=== PATIENT | male | born 1935 | race Caucasian/White ===

== ENCOUNTER 2020-02-21 08:41 | Inpatient (IN) ==
--- NOTE | 2020-02-08 09:42 | PAT Medication Instructions ---
Medication Instructions Date of Service February 08, 2020 Home Medications alendronate 70 mg PO WK alfuzosin 10 mg PO QAM calcium carbonate-vitamin D3 [Calcium 600 + D(3)] 1 tab PO QDL carbidopa-levodopa 1 tab PO QPM carbidopa-levodopa 2 tab PO HS gabapentin 200 mg PO HS magnesium oxide 400 mg PO QDL yeumllpu-kuy-ET-lycopen-lutein [Centrum Silver] 1 tab PO QPM saw palmetto fruit 450 mg PO QDL sennosides 34.4 mg PO HS Continue as directed alendronate 70 mg PO WK (just do not take AM of surgery) STOP taking 2 weeks before surgery syprfzoh-tqj-SL-lycopen-lutein [Centrum Silver] 1 tab PO QPM saw palmetto fruit 450 mg PO QDL DO NOT take the morning of surgery calcium carbonate-vitamin D3 [Calcium 600 + D(3)] 1 tab PO QDL magnesium oxide 400 mg PO QDL Take morning of surgery With a small sip of water, OTHERWISE NOTHING TO EAT OR DRINK AFTER MIDNIGHT: alfuzosin 10 mg PO QAM Take evening before surgery carbidopa-levodopa gabapentin 200 mg PO HS sennosides 34.4 mg PO HS Other Notes If you have any questions please call us at [phone] or [phone] or [phone] or [phone]
--- NOTE | 2020-02-08 09:57 | Anesthesiology Consultation ---
Date of Service February 08, 2020 Assessment & Plan (1) Encounter for pre-operative examination: Chart Review Chart Review: Acceptable Risk for Surgery and Patient seen in Pre Admission Testing Teaching & Discussion Pre-Anesthesia Teaching/Discussion Notes: Instructed NPO after midnight before surgery,except medications with 15 cc of water. Medication instructions provided according to the PAT guidelines. History Surgery Operation Date: 02/21/20 11:25 Proposed Procedures p L2-L5 Decompression and Fusion; Spinal Cord Monitoring - Terrell Dobbins DO Height/Weight Height: 5 ft 10 in Weight: 72.6 kg Allergies Allergy/AdvReac Type Severity Reaction Status Date / Time No Known Allergies Allergy Verified 01/25/20 14:34 Medications Home Medications Medication Instructions Recorded Confirmed Last Taken alendronate 70 mg PO WK 01/25/20 01/25/20 Unknown alfuzosin 10 mg PO QAM 01/25/20 01/25/20 Unknown calcium carbonate-vitamin D3 1 tab PO QDL 01/25/20 01/25/20 Unknown [Calcium 600 + D(3)] carbidopa-levodopa 1 tab PO QPM 01/25/20 01/25/20 Unknown carbidopa-levodopa 2 tab PO HS 01/25/20 01/25/20 Unknown gabapentin 200 mg PO HS 01/25/20 01/25/20 Unknown magnesium oxide 400 mg PO QDL 01/25/20 01/25/20 Unknown mxrlnhxx-uxb-NA-lycopen-lutein 1 tab PO QPM 01/25/20 01/25/20 Unknown [Centrum Silver] saw palmetto fruit 450 mg PO QDL 01/25/20 01/25/20 Unknown sennosides 34.4 mg PO HS 01/25/20 01/25/20 Unknown Past Medical History Medical History (Updated 02/08/20 @ 11:58 by Gilma Saunders PA-C) BPH (benign prostatic hyperplasia) Cardiac murmur Mild MR and [place] on 2018 echo Chronic back pain Hearing deficit Protruded cervical disc normal ROM Restless leg syndrome reason for carbidopa-levodopa Snores Improved with UPPP surgery - has had two sleep studies- no known MELI per patient Exercise / Class Metabolic Activity III < 4 Walking/Shop/Light housework (one flight of stairs- mild SOB but no chest pain ) Past Family History Family History (Updated 01/25/20 @ 14:54 by Sharmila Babcock RN) Sister Family hx of colon cancer Other No family history of adverse response to anesthesia Past Surgical History Surgical History (Updated 01/25/20 @ 14:54 by Sharmila Babcock RN) History of colonoscopy with polypectomy History of esophagogastroduodenoscopy (EGD) History of tonsillectomy and adenoidectomy History of tooth extraction all teeth Status post uvulopalatopharyngoplasty Past Anesthesia History No Hx of Anesthesia Complications and No Family Hx of Anesthesia Complications History of PONV No Hx of PONV and No Hx of Motion Sickness Social History Smoking Status: Never smoker Do You Dip or Chew Tobacco: No Hx Alcohol Use: No Hx Substance Use: No substance use type: does not use Review of Systems Increased post nasal drip when laying down Patient denies chest pain, shortness of breath, dyspnea on exertion, reflux, cough, wheezing, palpitations. No hx of seizures, stroke, [place]. No hx of blood clots or blood transfusions Physical Exam Vital Signs VITALS BP 133/67 P 59 TEMP 97.5 SP02 99% RESP 16 Constitutional no acute distress ENMT Mouth: + dentures; no TMJ clicking Thyromental Distance: < 3.5 Finger Breadths (3.0) Mallampati Class: I Full dentures on top and bottom Neck neck extension not limited Respiratory normal respiratory effort; no respiratory distress Auscultation: lungs clear to auscultation bilaterally; no wheezes Cardiovascular Rate/Rhythm: regular rate and regular rhythm Heart Sounds: + murmur (I-II/ ) Vessels: no carotid bruit Extremities: no edema Musculoskeletal Spine: no pain with cervical ROM Neurologic moves all extremities Psychiatric Orientation: alert Testing Laboratory Results 02/08/20 10:10 02/08/20 10:10 PT 11.0 Seconds (9.0-12.0) 02/08/20 10:10 INR 1.0 (0.9-1.1) 02/08/20 10:10 APTT 28.6 Seconds (21.0-31.0) 02/08/20 10:10 Urine Color Yellow 02/08/20 10:10 Urine Appearance Clear (Clear) 02/08/20 10:10 Urine pH 6.0 (4.5-7.5) 02/08/20 10:10 Ur Specific Perry 1.021 (1.000-1.030) 02/08/20 10:10 Urine Protein Negative (Negative) 02/08/20 10:10 Urine Glucose (UA) Negative (Negative) 02/08/20 10:10 Urine Ketones Trace (Negative) H 02/08/20 10:10 Urine Nitrite Negative (Negative) 02/08/20 10:10 Ur Leukocyte Esterase Negative (Negative) 02/08/20 10:10 Blood Type A Positive 02/08/20 10:10 Antibody Screen NEGATIVE 02/08/20 10:10 Electrocardiogram Date: 02/08/20 SR with 1st degree AV block with occ PVCs at 61 bpm. RBBB. Chest X-Ray Date: 02/08/20 Findings: + NAD and + cardiomegaly Atherosclerotic calcification of the thoracic aorta. Echocardiogram Date: 10/10/18 EF: 65% LV Function: normal RWMA: + none Grade I diastolic dysfunction. LA moderately enlarged. AV mildly calcified. absent. Mild MR. Mild [place]. Proximal ascending thoracic aorta is borderline enlarged.
--- NOTE | 2020-02-08 10:53 | XRay Report ---
TWO VIEW CHEST CLINICAL HISTORY: Preoperative examination. FINDINGS: PA and lateral chest radiographs are obtained. No prior studies are available for compariso n at the time of dictation. The PA views are degraded by patient rotation. The heart is enlarged noti ng atherosclerotic calcification of the thoracic aorta. The pulmonary vasculature is noncongested. T he lungs and pleural spaces are clear. There is no pneumothorax. The skeletal structures are osteopen ic. The bony thorax appears intact. IMPRESSION: Cardiomegaly with no active disease in the chest. ACT 112: Negative or not required by law. Electronically signed by: Cem Marquez M.D. 02/08/2020 10:52 AM
[2020-02-08 10:54] LABS: Basophils # (auto) 0.03 K/uL (0-0.2); Basophils % (auto) 0.4 %; Eosinophils # (auto) 0.24 K/uL (0-0.5); Eosinophils % (auto) 3.4 %; Hematocrit (blood only) 39.1 % (42-52); Hemoglobin 13.4 g/dL (14.0-18.0); Immature Granulocytes # (auto) 0.02 K/uL (0.00-0.02); Immature Granulocytes % (auto) 0.3 %; Lymphocytes # (auto) 1.24 K/uL (1.2-3.4); Lymphocytes % (auto) 17.6 %; Mean Corpuscular Hemoglobin 29.6 pg (25-34); Mean Corpuscular Hgb Conc 34.3 g/dL (32-36); Mean Corpuscular Volume 86.3 fL (80-100); Mean Platelet Volume 10.7 fL (7.4-10.4); Monocytes # (auto) 0.79 K/uL (0.11-0.59); Monocytes % (auto) 11.2 %; Neutrophils # (auto) 4.73 K/uL (1.4-6.5); Neutrophils % (auto) 67.1 %; Platelet Count 189 K/uL (130-400); RDW Coefficient of Variation 13.8 % (11.5-14.5); RDW Standard Deviation 43.8 fL (36.4-46.3); Red Blood Count 4.53 M/uL (4.7-6.1); White Blood Count 7.05 K/uL (4.8-10.8)
[2020-02-08 11:01] LABS: BUN Creatinine Ratio 19.8 (10-20); Calcium 9.2 mg/dl (8.5-10.1); Creatinine Clr Calc Pharmacy 54.9 ml/min; Est GFR (African American) 78.2; Est GFR (Non-African American) 67.5; Potassium 4.5 mmol/L (3.5-5.1)
[2020-02-08 11:06] LABS: Appearance Urine Clear (Clear); Bilirubin Urine Negative (Negative); Blood Urine Negative (Negative); Color Urine Yellow; Glucose Urine UA Negative (Negative); Ketones Urine Trace (Negative); Leukocyte Esterase Urine Negative (Negative); Nitrite Urine Negative (Negative); Partial Thromboplastin Time 28.6 Seconds (21.0-31.0); Protein Urine Negative (Negative); Specific Gravity Urine 1.021 (1.000-1.030); Urobilinogen Urine Negative (Negative)
--- NOTE | 2020-02-08 17:36 | Electrocardiogram Report ---
Test Reason : Blood Pressure : / mmHG Vent. Rate : 061 BPM Atrial Rate : 061 BPM P-R Int : 222 ms QRS Dur : 168 ms QT Int : 486 ms P-R-T Axes : 073 109 052 degrees QTc Int : 489 ms Sinus rhythm with 1st degree A-V block with occasional Premature ventricular complexes Right bundle branch block Abnormal ECG No previous ECGs available Confirmed by Chris Sen ([id number]) on 02/08/2020 5:35:30 PM Referred By: Terrell Dobbins Confirmed By:Chris Sen
--- NOTE | 2020-02-14 11:25 | History & Physical Report ---
Date of Service February 14, 2020 Assessment & Plan (1) Neurogenic claudication due to lumbar spinal stenosis: At this time the patient is noted a progressive decline with inability to stand and ambulate. He is having progressive bilateral lower extremity weakness and atrophy. Subsequently recommending urgent lumbar decompression and fusion involving L2-3 L3-4 L4-5 and possible L5-S1. Hopefully addressing the disease urgently will prevent further decline in any permanent nerve damage weakness and long-term sequela. Risk benefits pros cons alternatives were outlined in detail. At this time a trap surgery range performed soon as possible. Present on Admission?: Yes History of Present Illness Chief Complaint: Back with bilateral leg pain and weakness Primary Care Provider: Ernestine Daniel MD This is an 84-year-old male that noting marked decline in status with severe bilateral leg pain and weakness. This has been progressive over the past several months. He did undergo several epidural injections which provided no long-term relief. Allergies Allergy/AdvReac Type Severity Reaction Status Date / Time No Known Allergies Allergy Verified 01/25/20 14:34 Home Medications Home Medications Medication Instructions Recorded Confirmed Type alendronate 70 mg PO WK 01/25/20 01/25/20 History alfuzosin 10 mg PO QAM 01/25/20 01/25/20 History calcium carbonate-vitamin D3 1 tab PO QDL 01/25/20 01/25/20 History [Calcium 600 + D(3)] carbidopa-levodopa 1 tab PO QPM 01/25/20 01/25/20 History carbidopa-levodopa 2 tab PO HS 01/25/20 01/25/20 History gabapentin 200 mg PO HS 01/25/20 01/25/20 History magnesium oxide 400 mg PO QDL 01/25/20 01/25/20 History ymdboumj-mxd-SO-lycopen-lutein 1 tab PO QPM 01/25/20 01/25/20 History [Centrum Silver] saw palmetto fruit 450 mg PO QDL 01/25/20 01/25/20 History sennosides 34.4 mg PO HS 01/25/20 01/25/20 History Past Med/Surg History Medical History (Updated 02/14/20 @ 11:24 by Terrell Dobbins DO) BPH (benign prostatic hyperplasia) Cardiac murmur Mild MR and [place] on 2018 echo Chronic back pain Hearing deficit Protruded cervical disc normal ROM Restless leg syndrome reason for carbidopa-levodopa Snores Improved with UPPP surgery - has had two sleep studies- no known MELI per patient Surgical History (Updated 01/25/20 @ 14:54 by Sharmila Babcock RN) History of colonoscopy with polypectomy History of esophagogastroduodenoscopy (EGD) History of tonsillectomy and adenoidectomy History of tooth extraction all teeth Status post uvulopalatopharyngoplasty Family History (Updated 01/25/20 @ 14:54 by Sharmila Babcock RN) Sister Family hx of colon cancer Other No family history of adverse response to anesthesia Social History Preferred Language: Bol[place]ian Communication Ability: Effective Splitter Head Required: No Beliefs That Will Affect Care: None Current Living Situation: Spouse Other Information That Helps Us Care for You: No Feels Safe at Home: Yes Safety Concerns: Feels Safe At This Time Smoking Status: Never smoker Do You Dip or Chew Tobacco: No ; Second Hand Exposure: No ; Tobacco Cessation Education Requested by Patient: No Hx Alcohol Use: No Hx Substance Use: No Physical Exam Physical Exam: Patient is alert and oriented Bench exam reveals a negative logroll bilaterally. No gross tension signs. He does exhibit weakness predominantly the bilateral quadriceps with evidence of atrophy. Plantar flexion dorsiflexion appear to be symmetric and intact. Standing and ambulation even a short period of time throughout the room require him to sit down as he feels his legs will give way. Heart is regular rate and rhythm Lungs clear to auscultation. Results & Data Diagnostic Findings MRI lumbar spine demonstrates anterior listhesis at L2-3 and L3-4 with severe degenerative change to space collapse at L4-5. There is right-sided neuroforaminal disease at L5-S1. Centrally he has severe central lateral recess stenosis most predominant at L2-3 and L3-4.
[~2020-02-21 08:41] MED LIST: ACETAMINOPHEN 500 MG TAB PO SCH; CEFAZOLIN 1000MG 1,000 MG/7.5 ML SYR IV SCH; CeleBREX 200 MG CAP PO SCH; GABAPENTIN 300 MG CAP PO SCH; LR 15ML/HR IV SCH; SODIUM CHLORIDE 0.9% 250 ML IV PRN
[2020-02-21] MEDS ORDERED: fentaNYL citrate 100 MCG/2 ML VIAL ONE ×3 (10:22→15:23)
--- NOTE | 2020-02-21 10:31 | History & Physical Bridge Note ---
Date of Service February 21, 2020 History & Physical Bridge Note I have examined the patient, reviewed the History & Physical and in the interval since the performance of the History & Physical I have noted the following changes of clinical significance: no changes noted
[2020-02-21] MEDS ORDERED: BACITRACIN INJ 50,000 UNIT VIAL ONE (11:14)
[2020-02-21] MEDS ORDERED: BUPIVACAINE/EPINEPHRINE 0.5% MPF 1:200,000 10 ML VIAL ONE (11:14)
[2020-02-21] MEDS ORDERED: HYDROmorphone INJ 1 MG/ML SYRINGE IV PRN ×2 (11:27→16:12)
[2020-02-21] MEDS ORDERED: ePHEDrine sulfate 50 MG/ML AMP IV PRN (11:27)
[2020-02-21] MEDS ORDERED: ONDANSETRON INJ 2 MG/ML 2 ML VIAL IV PRN ×2 (11:27→16:12)
[2020-02-21] MEDS ORDERED: fentaNYL citrate 100 MCG/2 ML VIAL IV PRN (11:27)
[2020-02-21] MEDS ORDERED: ATROPINE SULFATE 0.1 MG/ML 10ML SYR IV PRN (11:27)
[2020-02-21] MEDS ORDERED: FLOSEAL HEMOSTATIC MATRIX 10ML TOP ONE (12:36)
[2020-02-21] MEDS ORDERED: LIDOCAINE HCL 2% 2 ML VIAL/AMP(20MG/ML) INFIL ONE (14:07)
[2020-02-21] MEDS ORDERED: SUCCINYLCHOLINE CHLORIDE 20 MG/ML 10 ML VIAL ONE (14:07)
[2020-02-21] MEDS ORDERED: PROPOFOL IV EMULSION 10 MG/ML 20 ML VIAL IV ONE (14:07)
[2020-02-21] MEDS ORDERED: ROCURONIUM BROMIDE 10 MG/ML 5 ML VIAL ONE (14:07)
[2020-02-21] MEDS ORDERED: GLYCOPYRROLATE 0.2 MG/ML VIAL ONE (14:08)
[2020-02-21] MEDS ORDERED: ONDANSETRON INJ 2 MG/ML 2 ML VIAL ONE (14:08)
[2020-02-21] MEDS ORDERED: NEOSTIGMINE METHYLSULFATE 5 MG/5 ML SYR ONE (14:08)
--- NOTE | 2020-02-21 14:19 | Operative Report ---
Post Operative Report Pre & Post Diagnosis Operation Date: 02/21/20 11:05 Pre-Op Diagnosis: Neurogenic Claudication Due to Lumbar Spinal Stenosis Post-Op Diagnosis: Neurogenic Claudication Due to Lumbar Spinal Stenosis I identified the patient and participated in the time-out.: Yes Procedure Operation Date: 02/21/20 11:05 Actual Procedures #1 lumbar decompression with bilateral medial facetectomies and foraminotomies L2-3, L3-4, L4-5 and L5-S1. #2 posterior spinal fusion L2-3, L3-4, L4-5 and L5- S1. #3 placement posterior segmental instrumentation from L2-S1 including a cross-link. #4 placement locally harvested morselized autograft in the posterior lateral gutters. #5 placement infuse collagen sponge combined master graft in the posterior lateral gutters. Surgeon Terrell Dobbins, Server Hannah Pagan Estimated Blood Loss 400 Findings Consistent with Post-Op Diagnosis Specimens None Indications This is a 84-year-old male who presents with marked decline in status and subsequently underwent urgent multilevel lumbar decompression fusion. Description of Procedure Patient was met with identified informed consent obtained. Patient was then taken to the operative suite underwent intubation placed in a prone position the Chalo table on top of the David frame. All bony prominences well-padded eyes inspected to ensure no external pressure placed upon them. This point the lumbar spine was prepped and draped in normal sterile fashion. Sharp dissection with the assistance of Bovie cartilage form down to and exposing the lamina and transverse processes of L2 L3-L4-L5 and sacral ala bilaterally. From caudal cephalad fashion partial laminectomy of L5 was performed and complete laminectomy of L4 L3 and L2. This included bilateral medial facetectomies and foraminotomies to address severe spinal stenosis. Pedicle screws were then placed in L2 L3-L4-L5 and S1 levels bilaterally with the assistance of fluoroscopy and the proper sized toshia locked in position. This included a cross- link. The transverse processes of L2 L3-L4-L5 and sacral ala were then burred to subcortical bleeding bone. Infuse collagen sponge master graft local autograft was then placed in the posterior lateral gutters. 15 round CALEB drain inserted. The incision was then closed with 1 Vicryl in the fascia 2-0 Vicryl subcutaneously and 4 Monocryl for final skin closure. Steri-Strip sterile dressings placed. Patient will continue PACU stable addition. Please note Hannah Pagan was present at the entire procedure involved the patient positioning complex portions of the surgery and final skin closure. Lastly spinal cord monitoring was utilized that the procedure no changes noted. I attest to the content of the Intraoperative Record and any orders documented therein. Any exceptions are noted below.
--- NOTE | 2020-02-21 14:33 | Fluoroscopy Report ---
FL lumbar spine 2-3V HISTORY: 84 years-old Male L2-L5 DECOMP/FUSION chronic low back pain COMPARISON: None TECHNIQUE: 4 spot fluoroscopic images of the lumbar spine were obtained utilizing 28.2 seconds fluoro scopy time FINDINGS: Laminectomy changes with posterior interbody toshia and screw fusion extends from what appears to be the L2-S1 levels. The hardware appears to be intact and alignment is satisfactory. Multilevel disc space narrowing with spondylitic spurring. IMPRESSION: Fluoroscopic assistance as above. Please see operative report for further details. ACT 112: Negative or not required by law. The above report was generated using voice recognition software. It may contain grammatical, syntax o r spelling errors. Electronically signed by: Aleksandr Richards M.D. 02/21/2020 2:31 PM
--- NOTE | 2020-02-21 15:55 | Anesthesiology Progress Note ---
Date of Service February 21, 2020 Anesthesia Post Procedure Vital Signs Vital Signs: Temp Pulse Pulse Resp BP BP Pulse Ox 02/21/20 15:40 54 L 14 122/59 L 96 02/21/20 15:30 54 L 12 127/61 98 02/21/20 15:20 60 18 116/64 97 02/21/20 15:10 69 12 112/74 99 02/21/20 15:03 97.2 F L 72 13 141/60 H 100 02/21/20 09:53 98.4 F 78 18 209/91 H 100 Pain Intensity Back: Pain Intensity: 5 Transfer of Care Handoff Completed per policy Notes Mental Status: alert / awake / arousable and participated in evaluation Patient Amnestic to Procedure: Yes Nausea / Vomiting: adequately controlled Pain: adequately controlled Airway Patency, RR, SpO2: stable & adequate BP & HR: stable & adequate Hydration State: stable & adequate Anesthetic Complications: no major complications apparent and Pt Satisfied with anesthetic care
[2020-02-21] MEDS ORDERED: MAGNESIUM HYDROXIDE SUSP 30 ML UDC PO PRN (16:12)
[2020-02-21] MEDS ORDERED: SOD PHOSPHATE/SOD BIPHOSPHATE ENEMA 132 ML BTL PR PRN (16:12)
[2020-02-21] MEDS ORDERED: METOCLOPRAMIDE HCL INJ 5 MG/ML 2 ML VIAL IV PRN (16:12)
[2020-02-21] MEDS ORDERED: ACETAMINOPHEN 500 MG TAB PO PRN (16:12)
[2020-02-21] MEDS ORDERED: DO NOT ADMINISTER PNEUMOCOCCAL VACCINE PRN (16:12)
[2020-02-21] MEDS ORDERED: LORazepam 0.5 MG/1 ML VIAL IV PRN (16:12)
[2020-02-21] MEDS ORDERED: DO NOT ADMINISTER FLU VACCINE PRN (16:12)
[2020-02-21] MEDS ORDERED: ONDANSETRON 4 MG OD TAB PO PRN (16:12)
[2020-02-21] MEDS ORDERED: HYDROmorphone INJ 0.5 MG/0.5 ML SYR IV PRN (16:12)
[2020-02-21] MEDS ORDERED: LORazepam 0.5 MG TAB PO PRN (16:12)
[2020-02-21] MEDS ORDERED: PROMETHAZINE HCL 12.5 MG in SODIUM CHLORIDE 0.9% 50 ML IV PRN (16:12)
[2020-02-21] MEDS ORDERED: bisacodyL 10 MG SUPP PR PRN (16:12)
[2020-02-21] MEDS ORDERED: ALUMINUM/MAGNESIUM SUSP 30 ML UDC PO PRN (16:12)
[2020-02-21] MEDS ORDERED: ACETAMINOPHEN 1,000 MG/100 ML VIAL IV PRN (16:12)
[2020-02-21] MEDS ORDERED: FAMOTIDINE 20 MG TAB PO PRN (16:12)
[2020-02-21] MEDS ORDERED: TRAMADOL HCL 50 MG TABLET PO PRN (16:12)
[2020-02-21] MEDS ORDERED: NALOXONE HCL 0.4 MG/1 ML VIAL/CARP IV PRN (16:12)
[2020-02-21] MEDS: SODIUM CHLORIDE 0.9% 1000ML 1,000 ML IV SCH (16:32)
--- NOTE | 2020-02-21 16:48 | Consultation ---
Date of Consultation February 21, 2020 Assessment & Plan (1) Status post lumbar surgery: Post op day# 0 S/P L2-S1 decompression and fusion by Dr Dobbins EBL#400ml Post op doing well -pain management per ortho -wound management per ortho -PT/OT as appropriate -DVT prophylaxis per ortho -incentive spirometry -monitor H&H for acute blood loss anemia; pre-op Hgb: 13.4 (2) BPH (benign prostatic hyperplasia): -Continue alfuzosin (3) Restless leg syndrome: -Continue carbidopa-levodopa DVT Prophylaxis -SCDs per ortho Disposition pre primary service Follows with Dr Ernestine Daniel for routine care Pt was seen and care coordinated with Dr Morales. See addendum Thank you for this consultation. We will follow the patient with you during their hospital stay. You can reach a [facility] via pager @ [phone]. Supervising Physician Co-Signing Physician Notes Attending addendum Patient was seen and examined in medical floor He is status post L2-S1 decompression and fusion He has been feeling great following the surgery Denies any symptoms On examination Lying in bed comfortably Hemodynamically stable Chest-clear to auscultate bilaterally Heart-S1-S2, regular Abdomen-benign Extremities-negative for any edema VIDEO TECHNICIAN-no focal neuro deficit His labs and imaging studies prior to surgery reviewed We will check his CBC and PRP in the morning Medically stable Agree with assessment and plan as outlined above by PRISCILA Jauregui Dr History of Present Illness Requesting Physician: Dr Dobbins Reason for Consultation: Post op medical management Attending Physician: Terrell Dobbins DO History of Present Illness Pt is 84 y/o M with PMH RLS, BPH seen in medical consultation for postop medical management s/p L2-S1 decompression fusion today by Dr. Dobbins. Postop patient reports doing well. Reports back pain controlled. Denies lower extremity pain or paresthesias. Denies nausea or vomiting. Reports last BM yesterday. Has Delarosa catheter in place. Denies fever/chills, diaphoresis, MILLS, dizziness, syncope, vision changes, neck pain, CP, SOB, orthopnea, palpitations, cough, sore throat, choking, otalgia, rhinorrhea, abdominal pain, weakness, extremity edema, rashes. Allergies Allergy/AdvReac Type Severity Reaction Status Date / Time No Known Allergies Allergy Verified 02/21/20 09:49 Home Medications Home Medications Medication Instructions Recorded Confirmed Type alendronate 70 mg PO WK 01/25/20 02/21/20 History alfuzosin 10 mg PO QAM 01/25/20 02/21/20 History calcium carbonate-vitamin D3 1 tab PO QDL 01/25/20 02/21/20 History [Calcium 600 + D(3)] carbidopa-levodopa 1 tab PO QPM 01/25/20 02/21/20 History carbidopa-levodopa 2 tab PO HS 01/25/20 02/21/20 History gabapentin 200 mg PO HS 01/25/20 02/21/20 History magnesium oxide 400 mg PO QDL 01/25/20 02/21/20 History yeemmzsc-pwb-ZE-lycopen-lutein 1 tab PO QPM 01/25/20 02/21/20 History [Centrum Silver] saw palmetto fruit 450 mg PO QDL 01/25/20 01/25/20 History sennosides 34.4 mg PO HS 01/25/20 01/25/20 History sennosides [Senokot] 8.6 mg PO HS 02/21/20 02/21/20 History Patient History Medical History BPH (benign prostatic hyperplasia) Cardiac murmur Mild MR and [place] on 2018 echo Chronic back pain Hearing deficit Protruded cervical disc normal ROM Restless leg syndrome reason for carbidopa-levodopa Snores Improved with UPPP surgery - has had two sleep studies- no known MELI per pat ient Surgical History History of colonoscopy with polypectomy History of esophagogastroduodenoscopy (EGD) History of tonsillectomy and adenoidectomy History of tooth extraction all teeth Status post uvulopalatopharyngoplasty Family History Sister Family hx of colon cancer Other No family history of adverse response to anesthesia Social History Preferred Language: Botswanan Communication Ability: Effective Gym Supervisor Required: No Beliefs That Will Affect Care: None Current Living Situation: Spouse Other Information That Helps Us Care for You: No Feels Safe at Home: Yes Safety Concerns: Feels Safe At This Time Smoking Status: Never smoker Do You Dip or Chew Tobacco: No ; Second Hand Exposure: No ; Tobacco Cessation Education Requested by Patient: No Hx Alcohol Use: No Hx Substance Use: No Review of Systems Review of Systems: All systems reviewed & are unremarkable except as noted in HPI & below Physical Exam Physical Exam: General: no distress, WDWN Head: normocephalic, atraumatic Eyes: PERRL, EOM's intact, conjunctiva non-injected, anicteric ENT: hard of hearing, normal inspection external ears, nose, mucous membranes moist Neck: supple, trachea midline Lungs: clear, no respiratory distress, no wheezing/rhonchi/rales CV: RRR, +systolic murmur, no JVD, no pretibial edema Abd: normal BS, soft, non-tender Back: surgical dressing in place is dry, CALEB drain in place Ext: no cyanosis, no calf tenderness; sensation to light touch intact bilaterally, bilateral pedal pushes and pulls intact, distal pulses intact Neuro: A&O x 3, no focal deficits noted, normal affect Skin: warm, dry Results & Data ([facility]) Vital Signs (Past 12 Hours) Vital Signs Temp Pulse Pulse Resp BP BP Pulse Ox 02/21/20 16:36 36.3 C L 49 L 14 134/70 99 02/21/20 16:10 36.4 C L 58 L 14 134/62 100 02/21/20 16:00 55 L 14 127/58 L 98 02/21/20 15:50 36.2 C L 55 L 12 127/60 99 02/21/20 15:40 54 L 14 122/59 L 96 02/21/20 15:30 54 L 12 127/61 98 02/21/20 15:20 60 18 116/64 97 02/21/20 15:10 69 12 112/74 99 02/21/20 15:03 36.2 C L 72 13 141/60 H 100 02/21/20 09:53 36.9 C 78 18 209/91 H 100
[2020-02-21] MEDS: CARBIDOPA/LEVODOP 10/100MG TAB PO SCH ×2 (18:24→20:49)
[2020-02-21] MEDS: CEFAZOLIN 2000MG 2,000 MG/15 ML SYR IV SCH (20:35)
[2020-02-21] MEDS: DOCUSATE SODIUM/SENNA 50/8.6MG TAB PO SCH (20:49)
[2020-02-21] MEDS: GABAPENTIN 100 MG CAP PO SCH (20:49)
[2020-02-22] MEDS: SODIUM CHLORIDE 0.9% 1000ML 1,000 ML IV SCH (03:23)
[2020-02-22] MEDS: CEFAZOLIN 2000MG 2,000 MG/15 ML SYR IV SCH (04:14)
[2020-02-22] MEDS: POLYETHYLENE (MIRALAX) 17 GM PACK PO SCH ×4 (06:08→23:45)
[2020-02-22 06:18] LABS: Basophils # (auto) 0.03 K/uL (0-0.2); Basophils % (auto) 0.3 %; Eosinophils # (auto) 0.09 K/uL (0-0.5); Eosinophils % (auto) 0.9 %; Hemoglobin 10.6 g/dL (14.0-18.0); Immature Granulocytes # (auto) 0.03 K/uL (0.00-0.02); Immature Granulocytes % (auto) 0.3 %; Lymphocytes # (auto) 0.95 K/uL (1.2-3.4); Lymphocytes % (auto) 9.4 %; Mean Corpuscular Hemoglobin 28.5 pg (25-34); Mean Corpuscular Hgb Conc 33.1 g/dL (32-36); Mean Platelet Volume 10.5 fL (7.4-10.4); Monocytes # (auto) 1.01 K/uL (0.11-0.59); Neutrophils # (auto) 7.98 K/uL (1.4-6.5); Neutrophils % (auto) 79.1 %; Platelet Count 150 K/uL (130-400); RDW Coefficient of Variation 13.9 % (11.5-14.5); RDW Standard Deviation 44.1 fL (36.4-46.3); Red Blood Count 3.72 M/uL (4.7-6.1); White Blood Count 10.09 K/uL (4.8-10.8)
[2020-02-22 06:46] LABS: BUN Creatinine Ratio 16.2 (10-20); Calcium 7.8 mg/dl (8.5-10.1); Creatinine Clr Calc Pharmacy 55.7 ml/min; Est GFR (African American) 81.2; Potassium 4.1 mmol/L (3.5-5.1)
--- NOTE | 2020-02-22 08:32 | Hospitalist Progress Note ---
Date of Service February 22, 2020 Assessment & Plan (1) Status post lumbar surgery: Post op day# 0 S/P L2-S1 decompression and fusion by Dr Shilpi RODRIGUES#400ml Total CALEB drain output# 840ml -pain management per ortho -wound management per ortho -PT/OT as appropriate -DVT prophylaxis per ortho - SCDs -continue incentive spirometry -pre-op Hgb: 13.4, today Hgb: 10.6; monitor H&H (2) BPH (benign prostatic hyperplasia): -Continue alfuzosin (3) Restless leg syndrome: -Continue carbidopa-levodopa DVT Prophylaxis -SCDs per ortho Disposition pre primary service Pt was seen and care coordinated with Dr Garcia. See addendum Admission and Anticipated Discharge Date Admission Date: February 21, 2020 Supervising Physician Co-Signing Physician Notes Attending addendum Patient was seen and examined in medical Remains stable following an lumbar surgery Denies any significant symptom On examination Hemodynamically stable Chest-clear Heart-S1-S2, regular Abdomen-benign Extremities-negative for any edema PROTOTYPE SPECIAL BUILD-no focal neuro deficit His labs reviewed Remains stable following L2-S1 decompression and fusion Medically stable Reviewed assessment and plan as documented above by Gwen garcia Subjective Pt seen and examined. Lying in bed. Reports some low back pain. Denies lower extremity pain or paresthesias. States was able to walk in the halls yesterday evening. Still has Delarosa cath in place. Reports passing flatus. Reports eating and drinking without difficulty. Denies fever/chills, diaphoresis, N/V, MILLS, dizziness, syncope, vision changes, neck pain, CP, SOB, orthopnea, palpitations, cough, sore throat, choking, otalgia, rhinorrhea, abdominal pain, extremity weakness, extremity edema, rashes, urinary symptoms. Review of Systems Review of Systems: All systems reviewed & are unremarkable except as noted in HPI & below Physical Exam Physical Exam: General: no distress, WDWN Head: normocephalic, atraumatic Eyes: conjunctiva non-injected, anicteric ENT: hard of hearing, normal inspection external ears, nose, mucous membranes moist Neck: supple, trachea midline Lungs: clear, no respiratory distress, no wheezing/rhonchi/rales CV: RRR, +systolic murmur, no pretibial edema Abd: normal BS, soft, non-tender Back: surgical dressing in place is dry, CALEB drain in place with serosanguineous drainage Ext: no erythema, no calf tenderness; sensation to light touch intact bilaterally, bilateral pedal pushes and pulls intact, distal pulses intact Neuro: A&O x 3, no focal deficits noted, normal affect Skin: warm, dry Results & Data Results & Data ([facility]) Vital Signs (Past 12 Hours) Vital Signs Temp Pulse Pulse Resp BP Pulse Ox 02/22/20 07:18 36.4 C L 73 18 108/63 96 02/22/20 04:16 112/59 L 02/22/20 03:05 36.5 C 74 16 107/57 L 94 02/21/20 22:53 36.4 C L 67 16 156/65 H 99 Laboratory Results Short CBC 02/22/20 Range/Units 06:03 WBC 10.09 (4.8-10.8) K/uL Hgb 10.6 L (14.0-18.0) g/dL Hct 32.0 L (42-52) % Plt Count 150 (130-400) K/uL BMP 02/22/20 06:03 Sodium 138 Potassium 4.1 Chloride 107 Carbon Dioxide 26 BUN 16 Creatinine 0.98 Glucose 108 H Calcium 7.8 L
[2020-02-22] MEDS: ALFUZOSIN HCL 10 MG TAB PO SCH (08:46)
[2020-02-22] MEDS: OXYCODONE HCL IR 5 MG TAB (IMMEDIATE RELEASE) PO PRN (08:48)
--- NOTE | 2020-02-22 10:19 | Orthopedic Progress Note ---
Date of Service February 22, 2020 Assessment & Plan (1) Neurogenic claudication due to lumbar spinal stenosis: This time we will continue physical therapy monitor his CALEB output hopefully discharge home in the next few days. Present on Admission?: Yes Admission and Anticipated Discharge Date Admission Date: February 21, 2020 Subjective Patient's back pain is controlled. Leg symptoms improved. He feels his strength is improved. Physical Exam Physical Exam: Patient appears comfortable is good strength testing. Results & Data ([facility]) Vital Signs (Past 12 Hours) Vital Signs Temp Pulse Pulse Resp BP Pulse Ox 02/22/20 07:18 36.4 C L 73 18 108/63 96 02/22/20 04:16 112/59 L 02/22/20 03:05 36.5 C 74 16 107/57 L 94 02/21/20 22:53 36.4 C L 67 16 156/65 H 99
--- NOTE | 2020-02-22 10:42 | Anesthesiology Progress Note ---
Date of Service February 22, 2020 Anesthesia Post Procedure Vital Signs Vital Signs: Temp Pulse Pulse Resp BP Pulse Ox 02/22/20 07:18 36.4 C L 73 18 108/63 96 02/22/20 04:16 112/59 L 02/22/20 03:05 36.5 C 74 16 107/57 L 94 02/21/20 22:53 36.4 C L 67 16 156/65 H 99 02/21/20 19:09 36.3 C L 45 L 18 125/52 L 92 02/21/20 18:14 36.3 C L 64 16 132/62 99 02/21/20 17:10 36.3 C L 58 L 16 132/66 100 02/21/20 16:36 36.3 C L 49 L 14 134/70 99 02/21/20 16:10 36.4 C L 58 L 14 134/62 100 02/21/20 16:00 55 L 14 127/58 L 98 02/21/20 15:50 36.2 C L 55 L 12 127/60 99 02/21/20 15:40 54 L 14 122/59 L 96 02/21/20 15:30 54 L 12 127/61 98 02/21/20 15:20 60 18 116/64 97 02/21/20 15:10 69 12 112/74 99 02/21/20 15:03 36.2 C L 72 13 141/60 H 100 Pain Intensity Back: Pain Intensity: 2 Notes Mental Status: alert / awake / arousable Patient Amnestic to Procedure: Yes Nausea / Vomiting: adequately controlled Pain: adequately controlled Airway Patency, RR, SpO2: stable & adequate BP & HR: stable & adequate Hydration State: stable & adequate Anesthetic Complications: no major complications apparent and Pt Satisfied with anesthetic care
[2020-02-22] MEDS: MAGNESIUM OXIDE 400 MG TAB PO SCH (11:35)
[2020-02-22] MEDS: CALCIUM 600MG + VIT D 400 IU TAB PO SCH (11:35)
[2020-02-22] MEDS: CEROVITE ADV FORMULA TAB PO SCH (11:35)
[2020-02-22] MEDS: CARBIDOPA/LEVODOP 10/100MG TAB PO SCH ×2 (13:29→20:21)
[2020-02-22] MEDS: DOCUSATE SODIUM/SENNA 50/8.6MG TAB PO SCH (20:20)
[2020-02-22] MEDS: GABAPENTIN 100 MG CAP PO SCH (20:20)
[2020-02-23] MEDS: POLYETHYLENE (MIRALAX) 17 GM PACK PO SCH ×2 (05:51→11:18)
[2020-02-23] MEDS: OXYCODONE HCL IR 5 MG TAB (IMMEDIATE RELEASE) PO PRN (07:27)
[2020-02-23 07:52] VITALS: BP 147/74; PULSE 64; TEMP 97.9; O2SAT 95
[2020-02-23] MEDS: ALFUZOSIN HCL 10 MG TAB PO SCH (08:28)
[2020-02-23] MEDS: CEROVITE ADV FORMULA TAB PO SCH (11:18)
[2020-02-23] MEDS: CALCIUM 600MG + VIT D 400 IU TAB PO SCH (11:18)
[2020-02-23] MEDS: MAGNESIUM OXIDE 400 MG TAB PO SCH (11:18)
--- NOTE | 2020-02-23 11:26 | Discharge Summary ---
Date of Service February 23, 2020 Admission HPI Per Admitting Provider This is an 84-year-old male that noting marked decline in status with severe bilateral leg pain and weakness. This has been progressive over the past several months. He did undergo several epidural injections which provided no long-term relief. Principal Diagnosis Lumbar spinal stenosis with neurogenic claudication Discharge Data Allergies Allergy/AdvReac Type Severity Reaction Status Date / Time No Known Allergies Allergy Verified 02/21/20 09:49 Consultations 02/21/20 16:12 Consult Case Management - Discharge Planning Routine Consult Hospitalist Routine Procedures Performed Operation Date: 02/21/20 11:05 Actual Procedures p L2-S1 Decompression and Fusion, Application of Bone Morphogenetic Protein, Spinal Cord Monitoring(Not Applicable) - Terrell Dobbins DO Ordered Studies 02/21/20 11:05 FL fluoroscopy <1hr Routine FL lumbar spine 2-3V Routine Hospital Course (1) Neurogenic claudication due to lumbar spinal stenosis: Patient underwent lumbar decompression fusion tolerated this well second orthopedic for postoperative. Postop day 1 he was up and ambulating leg pain and strength improving. Rest the postop day #2 strength improved pain well controlled subsequently discharged home. Discharge orders and instructions found in the chart for further review. Total Time Total Time Spent Total Time Spent (In Minutes): 20 minutes Discharge Plan Discharge Items Patient Disposition: Home - Self-Care Reason For Visit: Spinal Stenosis, Lumbar Region with Neurogenic Cla Discharge Diagnosis: Lumbar spinal stenosis with neurogenic claudication Activity: As commented below Non-emergency contact: Primary Care Provider Call non-emergency contact if: you have any medication questions Follow-up/Referrals: Ernestine Daniel MD [Primary Care Provider] - Diet: Regular Addtl Attending Provider Instructions: ACTIVITY RECOMMENDATIONS: SELF CARE INSTRUCTIONS AFTER THORACIC/LUMBAR FUSIONS 1. You may walk to your tolerance. It is good exercise for your legs and back. Expect some back and intermittent leg aches and pains. 2. You may perform "counter-top" level activities (make a sandwich, isabela with a project, etc.). 3. No bending or lifting of more than 10 pounds or back twisting of any nature (roll like a log when turning in bed). 4. You may ride in a car for 20-30 minutes at a time. No driving until after your first visit with your doctor. 5. Frequent changes of position and restricting sitting to 30 minutes at a time will help limit the amount of back spasms and stiffness you may experience. 6. You may discontinue the use of ambulatory aids (cane, crutches, etc.) once your strength and confidence allow. 7. You may network operations center engineer the shower and let water strike your incision when you arrive home at least once daily. Do not take a tub bath, sit in a hot tub or go into a swimming pool until after your first recheck in the office. SPECIAL CARE INSTRUCTIONS: VERY IMPORTANT TO READ AND REVIEW A. Your surgical incision has been closed with a cosmetic suture under the skin that will dissolve in about 6 weeks. In 14 days, you can use a pair of clean scissors and cut the suture that is left outside of the skin at the ends of your incision. 1. The small skin tapes can be removed 7 days after surgery if they have not fallen off by that point. 2. You may keep the wound open to air as much as possible to promote healing after post-op day number 5 unless told otherwise by your doctor. 3. If you think the wound looks like it is becoming infected (redness or worsening drainage) and/or you are experiencing fever, chill or worsening back pain and muscle spasms, contact the office so that we may evaluate you as soon as possible. B. Complications are uncommon, but please contact us if you have any signs or symptoms of: 1. wound infection (fever higher than 102.5 degrees F, redness, separation of wound, drainage, or increasing pain from the incision) 2. blood clots in legs (pain, swelling, redness and warmth in legs) 3. urinary tract infection (fever higher than 102.5 degrees F, burning upon urination or increased frequency of urination) 4. nerve problems (inability to walk on your toes or heels, numbness, loss of bowel or bladder control) 5. any other symptoms that concern you C. Please call the office at if you have any concerns or questions about your operation or recovery. D. No smoking! Smoking drastically decreases the chance of a solid fusion. E. Do not take any anti-inflammatory medications (Indocin, Advil, Motrin, Aspirin, Naprosyn, etc.) as these may inhibit the chance of a solid fusion. Tylenol is okay to take for pain. MANAGING PAIN AFTER SPINAL SURGERY 1. Narcotic medication is intended for short-term use and will be provided for surgical pain. Surgical pain usually lasts for a period of 4-6 weeks. Narcotic medication includes Percocet, Vicodin, Darvocet, Tylenol #3 or Lortab. 2. Longer-term pain is more appropriately treated with non-narcotic medication such as Tylenol ES. 3. Muscle spasm is not appropriately treated with narcotics. Muscle relaxers such as Soma, Flexeril or Skelaxin can be used along with Tylenol ES. 4. Remember that we all live with some "aches and pains". This is not unusual or uncommon after an injury or as we get older. a. Back pain is expected and may include muscle spasms for 4 to 6 weeks after surgery. The pain should gradually improve. If the pain worsens for no apparent reason, please contact the office. b. Intermittent leg pain may also be experienced and should not be concerned about unless it worsens for no apparent reason. If so, please contact the office. 5. We will provide appropriate medication within the normal guidelines of their prescribed use. We will also be very cautious and aware of potential abuse and extended duration of patients' medication needs. a. Pain medications are for your comfort and to assist with sleep and rest so that the tissue can heal. They are not provided in order to return to normal activity and should not be used through the day. To do so or worsening pain at night can result from ongoing tissue damage and development of tolerance to the prescribed medicine. 6. Please allow 2-3 days to process refills. Prescriptions will not be mailed but must be picked up at the office. FOLLOW UP VISIT: Keep your scheduled follow-up appointment. Any questions, please call the office at . Pending Studies at Discharge: No Stand-Alone Forms: My [employer], Smoking Cessation Medications and DC Order Prescriptions: New tramadol 50 mg tablet 50 mg PO Q6H PRN (Reason: pain, moderate) Qty: 30 RF: 0 oxycodone 5 mg tablet 5 mg PO Q6H PRN (Reason: pain, severe) Qty: 20 RF: 0 Continued sennosides 8.6 mg Tablet 34.4 mg PO HS RF: 0 alendronate 70 mg Tablet 70 mg PO WK RF: 0 calcium carbonate-vitamin D3 [Calcium 600 + D(3)] 600 mg(1,500mg) -200 unit Tablet 1 tab PO QDL RF: 0 carbidopa-levodopa 10-100 mg Tablet 2 tab PO HS RF: 0 carbidopa-levodopa 10-100 mg Tablet 1 tab PO QPM RF: 0 gabapentin 100 mg Capsule 200 mg PO HS RF: 0 alfuzosin 10 mg Tablet Extended Release 24 Hr 10 mg PO QAM RF: 0 Centrum Silver 0.4-300-250 mg-mcg-mcg Tablet 1 tab PO QPM RF: 0 saw palmetto fruit 450 mg Capsule 450 mg PO QDL RF: 0 magnesium oxide 400 mg magnesium Tablet 400 mg PO QDL RF: 0 sennosides [Senokot] 8.6 mg Tablet 8.6 mg PO HS RF: 0 Discharge Orders: Discharge Order (Routine); Ordered 02/23/20 Ordered By: Terrell Dobbins Admission Data Admit Date/Time: 02/21/20 15:32 Attending Provider: Terrell Dobbins Admit Provider: Terrell Dobbins Primary Care Provider: Ernestine Daniel Other Providers: Ceci Morales ; Hans Pedroza
--- NOTE | 2020-02-23 11:52 | Hospitalist Progress Note ---
Date of Service February 23, 2020 Assessment & Plan (1) Status post lumbar surgery: Post op day# 2 S/P L2-S1 decompression and fusion by Dr Shilpi RODRIGUES#400ml Total CALEB drain output# 840ml -pain management per ortho -wound management per ortho -PT/OT as appropriate -DVT prophylaxis per ortho - SCDs -continue incentive spirometry -Hemoglobin remains stable -He has been ambulating well -Medically stable to be discharged (2) BPH (benign prostatic hyperplasia): -Continue alfuzosin (3) Restless leg syndrome: -Continue carbidopa-levodopa DVT Prophylaxis -SCDs per ortho Disposition pre primary service Admission and Anticipated Discharge Date Admission Date: February 21, 2020 Subjective 02/23/2020 Patient was seen and examined in medical floor He is status post L2-S1 decompression fusion on 21 February 2020 Minimal pain at the operation site He has been ambulating reasonably well denies any other significant symptoms Review of Systems Review of Systems: All systems reviewed and are unremarkable except as noted below Musculoskeletal: + back pain Physical Exam Physical Exam: No apparent distress at rest Constitutional: well developed and well nourished Eyes: PERRL, conjunctivae normal, anicteric sclerae ENMT: external ear and nose normal, oropharynx normal Neck: trachea midline, no thyromegaly Respiratory: normal respiratory effort; no respiratory distress Auscultation: lungs clear to auscultation bilaterally Cardiovascular: Rate/Rhythm: regular rate and regular rhythm Heart Sounds: no murmur Gastrointestinal (Abdomen): Inspection/Auscultation: abdomen normal to inspection and normal bowel sounds; abdomen not distended Percussion/Palpation: abdomen soft; abdomen nontender Musculoskeletal: Except back pain no other significant arthritis involvement of the joints Neurologic: moves all extremities; no focal motor deficits Results & Data Results & Data ([facility]) Vital Signs (Past 12 Hours) Vital Signs Temp Pulse Pulse Resp BP Pulse Ox 02/23/20 11:26 36.6 C 71 64 16 147/74 H 95 02/23/20 07:05 36.6 C 64 16 147/74 H 95 Medications Administered Current Inpatient Medications Acetaminophen (Tylenol) 1,000 mg PO Q8H PRN PRN Reason: MILD Pain Scale 1,2,3 & Pre PT Stop: 03/22/20 16:11 Al Hydrox/Mg Hydrox/Simethicone (Maalox) 30 ml PO Q6H PRN PRN Reason: Dyspepsia Stop: 03/22/20 16:11 Alendronate Sodium (Fosamax) 70 mg PO Bray@0630 REPLACED BY [facility] Stop: 03/26/20 06:29 Alfuzosin HCl (Uroxatral) 10 mg PO QAM REPLACED BY [facility] Stop: 03/23/20 08:59 Last Admin: 02/23/20 08:28 Dose: 10 mg Documented by: Bisacodyl (Dulcolax) 10 mg NC DAILY PRN PRN Reason: Constipation Stop: 03/22/20 16:11 Carbidopa/Levodopa (Sinement 10/100mg) 1 tab PO DAILY@1400 REPLACED BY [facility] Stop: 03/22/20 16:44 Last Admin: 02/22/20 13:29 Dose: 1 tab Documented by: Carbidopa/Levodopa (Sinement 10/100mg) 2 tab PO [facility] Stop: 03/22/20 20:59 Last Admin: 02/22/20 20:21 Dose: 2 tab Documented by: Diphenhydramine HCl (Benadryl Capsule) 25 mg PO Q6H PRN PRN Reason: Allergic Rhinitis/Insomnia Stop: 03/22/20 16:11 Famotidine (Pepcid) 20 mg PO Q12H PRN PRN Reason: Dyspepsia Stop: 03/22/20 16:11 Gabapentin (Neurontin) 200 mg PO [facility] Stop: 03/22/20 20:59 Last Admin: 02/22/20 20:20 Dose: 200 mg Documented by: Hydromorphone HCl (Dilaudid) 0.5 mg IV Q3H PRN PRN Reason: MOD pain (scale 4-6) & Pre PT Stop: 03/06/20 16:11 Hydromorphone HCl (Dilaudid) 1 mg IV Q3H PRN PRN Reason: severe pain (scale 7-10) Stop: 03/06/20 16:11 Hydroxyzine HCl (Vistaril) 25 mg PO Q8H PRN PRN Reason: Anxiety Stop: 03/22/20 16:11 Sodium Chloride (Nss) 250 mls @ 15 mls/hr IV .[id number] PRN PRN Reason: For Transfusion Stop: 03/22/20 04:59 Lorazepam (Ativan) 0.5 mg in 1 mls @ 0.5 mls/min IV Q8H PRN PRN Reason: Sedation/Anxiety Stop: 03/22/20 16:11 Acetaminophen (Ofirmev) 1,000 mg in 100 mls @ 400 mls/hr IV Q8H PRN PRN Reason: MILD Pain Rating 1,2,3 Stop: 02/24/20 16:11 Last Infusion: 02/22/20 02:45 Dose: Infused Documented by: Promethazine HCl 12.5 mg/ (Sodium Chloride) 50.5 mls @ 204 mls/hr IV Q6H PRN PRN Reason: Nausea &/or Vomiting Stop: 03/22/20 16:11 Influenza Virus Vaccine Quadrival (Flu Vaccine, Do Not Administer) 1 ea N/A PRN PRN PRN Reason: Notification Stop: 03/22/20 16:11 Lorazepam (Ativan) 0.5 mg PO Q8H PRN PRN Reason: Sedation/Anxiety Stop: 03/22/20 16:11 Magnesium Hydroxide (Milk Of Magnesia) 30 ml PO DAILY PRN PRN Reason: Constipation Stop: 03/22/20 16:11 Magnesium Oxide (Mag-Ox) 400 mg PO QDL REPLACED BY [facility] Stop: 03/23/20 11:29 Last Admin: 02/23/20 11:18 Dose: 400 mg Documented by: Metoclopramide HCl (Reglan) 10 mg IV Q6H PRN PRN Reason: Nausea &/or Vomiting Stop: 03/22/20 16:11 Multivitamins/Minerals (Caltrate Plus) 1 tab PO QDL REPLACED BY [facility] Stop: 03/23/20 11:29 Last Admin: 02/23/20 11:18 Dose: 1 tab Documented by: Multivitamins/Minerals (Multivitamin W/ Minerals Tab) 1 tab PO QDL REPLACED BY [facility] Stop: 03/23/20 11:29 Last Admin: 02/23/20 11:18 Dose: 1 tab Documented by: Naloxone HCl (Narcan) 0.1 mg IV Q5M PRN; Protocol PRN Reason: Oversedation/Resp Depression Stop: 03/22/20 16:11 Ondansetron HCl (Zofran) 4 mg IV Q6H PRN PRN Reason: Nausea &/or Vomiting Stop: 03/22/20 16:11 Ondansetron HCl (Zofran Odt) 4 mg PO Q6H PRN PRN Reason: Nausea Stop: 03/22/20 16:11 Oxycodone HCl (Roxicodone Immediate Rel) 5 - 10 mg PO Q4H PRN PRN Reason: Moderate-Severe Pain & Pre PT Stop: 03/06/20 16:11 Last Admin: 02/23/20 07:27 Dose: 10 mg Documented by: Pneumococcal Polyvalent Vaccine (Pneumococcal Vacc, Do Not Administer) 1 ea N/A PRN PRN PRN Reason: Notification Stop: 03/22/20 16:11 Polyethylene Glycol (Miralax Powder Packet) 17 gm PO Q6 ALDO Stop: 03/23/20 05:59 Last Admin: 02/23/20 11:18 Dose: 17 gm Documented by: Senna/Docusate Sodium (Senokot S) 2 tab PO HS ALDO Stop: 03/22/20 20:59 Last Admin: 02/22/20 20:20 Dose: 2 tab Documented by: Sodium Biphosphate/Sodium Phosphate (Fleet Enema) 132 ml NC ONE PRN PRN Reason: Constipation Stop: 03/22/20 16:11 Tramadol HCl (Ultram) 50 - 100 mg PO Q4H PRN PRN Reason: Moderate-Severe Pain & Pre PT Stop: 03/22/20 16:11
[2020-02-25] MEDS ORDERED: ALENDRONATE SODIUM 70 MG TAB PO SCH (06:30)
== END 2020-02-23 13:38 | disposition home or self-care (01) | DRG 460 ==
LOC: ASU 08:41 → 3E 15:32